=== PATIENT | female | born 1960 | race Caucasian/White ===

== ENCOUNTER → 2018-08-04 11:20 | Outpatient (CLI) | payer BC, SELFPAY ==
[2018-08-04 11:57] LABS: Blood Urea Nitrogen 18 mg/dL (7-18); Creatinine,Serum 0.94 mg/dL (0.55-1.02); Estimated Glomerular Filt Rate 61 ml/min (>60); GFR (African American) 74 ML/MIN (>60)
--- NOTE | 2018-08-04 12:01 | CT_ITS ---
CT abdomen pelvis wo/w con CLINICAL INDICATION: ITS.REASON: LEFT LOWER QUAD PAIN ORDERING PHYSICIAN: Sis Jones MD PATIENT AGE: 58 years COMPARISON: 10/03/2010 TECHNIQUE: Axial images obtained without and with contrast with sagittal and coronal reformats. All CT scans at the facility use one or more dose reduction, viz: automated exposure control, ma/kV adjustment per patient size (including targeted exams where dose is matched to indication, i.e. head), or iterative reconstruction technique. PROCEDURE: Oral Contrast: None IV Contrast: 75 mL Isovue-370. FINDINGS: There is consolidation/volume loss in the right lung base posteriorly with small effusion posteriorly. There is minimal pericardial thickening anteriorly. Small hypoattenuating area in the left hepatic lobe medial segment adjacent to the gallbladder fossa measuring 6 mm which may be due to small cyst. Unenhanced images show some increased density along the posterior aspect of the gallbladder which could be related to sludge. The spleen, adrenal glands, of an unremarkable appearance. There is atrophy of the pancreas. No pancreatic mass or inflammatory changes evident. No renal or ureteral calculi or hydronephrosis. Mild bilateral renal cortical scarring. No evidence of appendicitis. The appendix is retrocecal. No intestinal obstruction or free air. There is moderate thickening of the sigmoid colon with stranding of the pericolic fat consistent with acute diverticulitis. Inflamed diverticulum is noted anteriorly. There is no evidence of perforation or abscess. Diverticulosis involves the sigmoid colon. No pelvic mass apparent. No evidence of abdominal aneurysm. No acute bony anomalies. IMPRESSION: 1. The findings are consistent with acute noncomplicated diverticulitis of the sigmoid colon. No evidence of abscess or perforation 2. Possible sludge in the gallbladder. 3. Consolidation/volume loss of the right lung base posteriorly with small effusion
== END ==
PROVIDERS: PCP Family Medicine; Visit Provider Emergency Medicine
DX: R10.32 Left lower quadrant pain (principal)
CPT/HCPCS: 36415; 74170; 82565; 84520; Q9967

== ENCOUNTER → 2018-08-20 09:57 | Outpatient (CLI) | payer BC, SELFPAY ==
--- NOTE | 2018-08-20 10:02 | XR_ITS ---
XR foot RT min 3V HISTORY: Right-sided foot pain ITS.REASON: ACUTE RT ANKLE PAIN ORDERING PHYSICIAN: Sis Jones MD PATIENT AGE: 58 years COMPARISON: 01/17/2016 FINDINGS: There is a screw within the distal aspect of the fifth metatarsal as seen on the previous exam. The tip of the screws at the articular surface of the distal aspect of the fifth metatarsal but does not appear to be projecting through the surface and is unchanged from the previous exam. There is minimal medial angulation of the distal aspect of the fifth metatarsal. There is minimal widening of the angle between the fourth and fifth metatarsals as before. No fracture or dislocation. No significant arthritic change. IMPRESSION: Prior surgery of the fifth metatarsal as described above with mild widening of the space between the fourth and fifth metatarsals as before. No change with no acute finding
== END ==
PROVIDERS: PCP Family Medicine; Visit Provider Emergency Medicine
DX: M25.571 Pain in right ankle and joints of right foot (principal)
CPT/HCPCS: 73630

== ENCOUNTER 2018-08-31 07:48 | Outpatient (RCR) | payer BC, SELFPAY ==
--- NOTE | 2018-08-31 09:49 | HMH.PTOPEV ---
PT Outpatient Evaluation Rehab PT Outpatient Evaluation Start: 08/31/18 08:42 Freq: Status: Active Protocol: Document 08/31/18 08:42 RICHARD (Rec: 08/31/18 08:56 RICHARD [id number]) Electronically Signed By Quentin De, PT 08/31/18 08:42 Outpatient Therapy Subjective History Subjective History Patient is a 58 year old female presenting to outpatient PT with reports of R foot pain S/P R 5th metatarsal hairline fracture on 08/07/18 as a result of a fall at home. Pt reports previous R foot bunionectomy approximately 3 years ago per patient report. Pt presents to evaluation in [facility] walk[facility]. No reports of any restrictions or timeline for AD. Comorbidities include R bunionectomy, fibromyalgia, HTN and lumbar spinal stenosis . Chief Complaint Pain Stiff Swelling Weakness Symptom Type Sharp Shooting Symptoms Relieved By Rest/Positioning Ice Prescription Meds Prior Functional Limitations None Current Functional Limitations Housework Standing Recreation Activity Walking Stairs Balance Symptom Description Constant and Continuous Intermittent Level of pain today (0-10) 2 Pain scale - at its best (0-10) 0 Pain scale - at its worst (0-10) 5 Ankle/Foot Eval Gait Observation General Gait Pattern Observation Antalgic Gait Palpation Tenderness right Ankle/Foot Palpation Findings Tenderness Ankle/Foot Palpation Overall Comment Achilles ATF TTP positive ROM Ankle/Foot Dorsiflexion w/Knee Extended -10 Active Range Motion (degrees) Ankle/Foot Dorsiflexion w/Knee Extended -4 Passive Range (degrees) Ankle/Foot Plantar Flexion Active Range 60 of Motion (degrees) Ankle/Foot Eversion Active Range of 25 Motion (degrees) Ankle/Foot Inversion Active Range of 20 Motion (degrees) Ankle/Foot ROM Limitations Soft Tissue Tightness Great Toe ROM Reason Not Measured Within Function
== END 2018-08-31 07:49 | disposition home or self-care (01) ==
LOC: PT 07:48
PROVIDERS: Visit Provider Emergency Medicine
DX: M77.41 Metatarsalgia, right foot (principal)
CPT/HCPCS: 97163

== ENCOUNTER → 2019-01-31 14:27 | Outpatient (CLI) | payer BC, SELFPAY ==
[2019-01-31 15:21] LABS: Blood Urea Nitrogen 20 mg/dL (7-18); Calcium 9.2 mg/dL (8.5-10.1); Carbon Dioxide 26 mmol/L (21.0-32.0); Chloride 105 mmol/L (98-107); Creatinine,Serum 0.72 mg/dL (0.55-1.02); Estimated Glomerular Filt Rate 83 ml/min (>60); GFR (African American) 101 ML/MIN (>60); Glucose 100 mg/dL (74-106); Sodium 142 mmol/L (136-145)
[2019-01-31 15:27] LABS: Basophils % 0.3 % (0.1-2.0); Eosinophils # 0.1 K/mm3 (0.0-0.4); Hematocrit 45.9 % (37.0-47.0); Hemoglobin 15.4 g/dL (12.2-16.2); Lymphocytes # 2.3 K/mm3 (0.7-4.5); Lymphocytes % 24.1 % (10-50); Mean Corpuscular HGB Conc 33.5 g/dL (31.8-35.4); Mean Corpuscular Hemoglobin 30.5 pg (27.0-31.2); Mean Platelet Volume 7.6 fl (7.4-10.4); Monocytes # 0.3 K/mm3 (0.1-1.0); Monocytes % 3.4 % (1.7-9.3); Neutrophils # 6.7 K/mm3 (1.8-7.8); Neutrophils % 71.1 % (37.0-80.0); Platelet Count 262 K/mm3 (142-424); Red Blood Count 5.05 M/mm3 (4.20-5.40); Red Cell Distribution Width 13.7 % (11.5-17.5); White Blood Count 9.4 K/mm3 (4.8-10.8)
== END ==
PROVIDERS: Visit Provider Otolaryngology
DX: Z01.818 Encounter for other preprocedural examination (principal); D37.02 Neoplasm of uncertain behavior of tongue
CPT/HCPCS: 36415; 80048; 85025; 93005

== ENCOUNTER → 2019-03-11 11:14 | Outpatient (CLI) | payer OTHER, BC, SELFPAY ==
--- NOTE | 2019-03-11 11:18 | XR_ITS ---
XR wrist LT 2V HISTORY ITS.REASON: wrist pain ORDERING PHYSICIAN: Zander Castillo MD PATIENT AGE: 58 years Comparison: None FINDINGS: No fracture or dislocation. No lytic or blastic change. There is normal mineralization.. The joint spaces are well-preserved. No significant degenerative/arthritic changes. No erosive changes evident.. IMPRESSION: Negative wrist
--- NOTE | 2019-03-11 11:18 | XR_ITS ---
XR knee LT 2V HISTORY: ITS.REASON: knee pain ORDERING PHYSICIAN: Zander Castillo MD PATIENT AGE: 58 years COMPARISON: None FINDINGS: No fracture or dislocation. No lytic or blastic change. Normal mineralization. No significant arthritic changes evident. No other significant findings IMPRESSION: Negative Knee
== END ==
PROVIDERS: PCP Emergency Medicine; Visit Provider Emergency Medicine
DX: Z91.81 History of falling (principal)
CPT/HCPCS: 73100; 73560

== ENCOUNTER → 2019-03-22 13:07 | Outpatient (CLI) | payer BC, SELFPAY ==
--- NOTE | 2019-03-22 13:08 | CT_ITS ---
CT head/brain wo con HISTORY: Severe headache, syncope, head injury with pain and dizziness ITS.REASON: headache ORDERING PHYSICIAN: Zander Castillo MD PATIENT AGE: 58 years COMPARISON: 01/24/2019 TECHNIQUE: Axial images obtained without contrast. Brain and bone windows reviewed. All CT scans at the facility use one or more dose reduction, viz: automated exposure control, ma/kV adjustment per patient size (including targeted exams where dose is matched to indication, i.e. head), or iterative reconstruction technique. FINDINGS: No midline shift, mass effect, intracranial hemorrhage, hydrocephalus, or extra-axial fluid collection is evident. The calvarium has an unremarkable appearance. No mastoid effusion. No sinus air-fluid levels.. IMPRESSION: Negative CT head without contrast. No acute finding
--- NOTE | 2019-03-22 13:08 | CT_ITS ---
CT facial bones wo con CLINICAL INDICATION: Left facial pain, prior injury, ITS.REASON: facial pain ORDERING PHYSICIAN: Zander Castillo MD PATIENT AGE: 58 years COMPARISON: None TECHNIQUE:Axial images obtained with sagittal and coronal reformats. All CT scans at the facility use one or more dose reduction, viz: automated exposure control, ma/kV adjustment per patient size (including targeted exams where dose is matched to indication, i.e. head), or iterative reconstruction technique. FINDINGS: No fracture or sinus air-fluid level is evident. There are retention cyst along the floor of right and left maxillary sinus measuring up to 11 mm on the right and 10 mm on the left. Small nasal septal spur projecting toward the left. Scattered small nodes are present within the neck. Prominent amount of artifact is noted from patient's total work. No adenopathy. The orbits have an unremarkable appearance. There is a small subcutaneous calcification in the right supraorbital region nonspecific. The TMJs are unremarkable. IMPRESSION: 1. No acute finding. 2. Mild maxillary sinus disease.
--- NOTE | 2019-03-22 13:08 | CT_ITS ---
CT CERVICAL SPINE WITHOUT CONTRAST CT RECONSTRUCTIONS HISTORY:Neck pain following injury, posterior neck pain with pain radiating down both arms ORDERING PHYSICIAN: Zander Castillo MD PATIENT AGE: 58 years COMPARISON: None Technique: All CT scans at the facility use one or more dose reduction, viz: automated exposure control, ma/kV adjustment per patient size (including targeted exams where dose is matched to indication, i.e. head), or iterative reconstruction technique PROCEDURE: Axial spiral CT scanning performed of the cervical spine beginning at the base of the skull and continuing to the upper T-spine. 3-D multiplanar reconstruction with 3-D manipulation of volumetric data set in image rendering was completed by the radiologist and/or technologist with the supervision of the radiologist on independent workstation. FINDINGS: There is partial of the cervical lordosis which may be due to patient positioning or muscle spasm. No fracture or dislocation is evident. C2-C3: Small cystic area is present along the base of the odontoid on the left and at the inferior left aspect of the vertebral body of C2. C3-C4: Mild uncovertebral hypertrophy on the left. C4-C5: Degenerative disc disease with endplate and uncovertebral hypertrophy. C5-C6: Degenerative disc disease with endplate hypertrophic change with bilateral foraminal narrowing right greater than left. There is ossification of the posterior longitudinal ligament with mild narrowing of the canal at 10 mm. C6-C7: Mild degenerative disc disease with small left paracentral disc osteophyte complex. There are centrilobular emphysematous changes in the lung apices. Scattered small nodes are present in the neck. IMPRESSION: 1. No acute fracture. 2. Multilevel cervical spondylosis with degenerative disc disease and uncovertebral arthrosis. Please see above for detailed description at each level 3. There are 2 small lucent lesions of C2 which are quite for clinical significance. Stability may be confirmed with follow-up.
== END ==
PROVIDERS: PCP Emergency Medicine; Visit Provider Emergency Medicine
DX: R51 Headache (principal); R42 Dizziness and giddiness; Z91.81 History of falling
CPT/HCPCS: 70450; 70486; 72125

== ENCOUNTER → 2019-12-23 07:38 | Outpatient (CLI) | payer BC, SELFPAY ==
--- NOTE | 2019-12-23 07:41 | MM_ITS ---
PROCEDURE: MM DIG SCREENING MAMM BI W/CAD CLINICAL INDICATION: SCREENING There is no personal or family history of breast cancer COMPARISON: [facility] DIG MAMM-SCREEN TAMIKA from 06/08/2014 [facility] DIG MAMM-SCREEN TAMIKA from 06/23/2016 [facility] DIG MAMM- TAMIKA ADD VIEWS from 07/08/2016 TECHNIQUE: Standard CC and MLO images and 3D Tomosynthesis was obtained. R2 CAD reviewed. FINDINGS: Moderate diffuse fibroglandular densities are seen in the central portions of both breasts. There is a tiny benign-appearing nodular density outer quadrant of the left breast at approximately the 3 o'clock position with smooth borders and this is likely a microcyst. This is best demonstrated on roberto images. There is no suspicious lesion and no suspicious microcalcifications. IMPRESSION: Moderate breast density with no suspicious lesions seen BI-RAD Category: 2 Benign Finding(s) FOLLOW-UP: 1YR 1 Year Follow-up (A letter has been sent to the patient regarding results of the study.) Dictated by: Dr. Winston Hare MD 12/25/2019 08:[address] Winston Hare MD in [place] 12/25/2019 08:32
== END ==
PROVIDERS: PCP Emergency Medicine; Visit Provider Family Medicine
DX: Z12.31 Encounter for screening mammogram for malignant neoplasm of breast (principal); N60.19 Diffuse cystic mastopathy of unspecified breast
CPT/HCPCS: 77063; 77067

== ENCOUNTER 2021-04-22 14:45 | Emergency (ER) | payer BC, SELFPAY ==
[2021-04-22 14:45] VITALS: BP 145/89; PULSE 78; RESP 20; TEMP 37; O2SAT 100; BMI 20.6
[2021-04-22 15:12] VITALS: BMI 20.6
--- NOTE | 2021-04-22 15:12 | CT_ITS ---
PROCEDURE INFORMATION: Exam: CT Abdomen And Pelvis With Contrast Exam date and time: 04/22/2021 3:12 PM Age: 60 years old Clinical indication: Abdominal pain; Localized; Patient HX: Lower abdomen pain since last Thursday with trace blood in urine per patient. ; Additional info: Lower abd pain TECHNIQUE: Imaging protocol: Computed tomography of the abdomen and pelvis with contrast. Total images: 280 Radiation optimization: All CT scans at this facility use at least one of these dose optimization techniques: automated exposure control; mA and/or kV adjustment per patient size (includes targeted exams where dose is matched to clinical indication); or iterative reconstruction. Contrast material: ISOVUE; Contrast volume: 75 ml; Contrast route: IV; COMPARISON: ABDPELWW CT abdomen pelvis wo/w con 08/04/2018 12:43 PM FINDINGS: Lungs: Mild atelectasis in the lung bases. Heart: Heart size normal. Mediastinal space: The visualized distal esophagus is normal. Liver: Normal contour. No mass lesions. No intrahepatic biliary ductal dilatation. Granulomatous calcifications in the liver. 7 mm cyst adjacent to the gallbladder fossa is not significantly changed and does not require further evaluation. Gallbladder and bile ducts: Normal. No calcified stones. No ductal dilation. Pancreas: Moderate pancreatic atrophy without acute abnormality. No pancreatic ductal dilatation. Spleen: Normal. No splenomegaly. Adrenal glands: Normal. No adrenal mass. Kidneys and ureters: No acute abnormalities. No hydronephrosis or hydroureter. No urinary tract stones are identified. 10 mm probable cyst in the upper pole cortex of the left kidney measuring 0 Hounsfield units does not require further evaluation. Stomach and bowel: The stomach is largely contracted without gross abnormality. The small bowel is nondilated with no gross abnormality. Moderate colonic stool and gas suggesting constipation. Moderate diverticulosis in the sigmoid colon with no changes of acute diverticulitis. Appendix: The appendix is normal in caliber and demonstrates no evidence of appendicitis. Intraperitoneal space: No free fluid or air. Vasculature: Moderate atherosclerotic aortoiliac calcification without aneurysm. Lymph nodes: No adenopathy. Urinary bladder: The urinary bladder is largely contracted without gross abnormality. Reproductive: 12 mm calcified lesion along the posterior margin of the uterine fundus is likely a small calcified fibroid, unchanged. Bones/joints: No acute osseous abnormalities. Soft tissues: Unremarkable. IMPRESSION: 1. Moderate colonic stool and gas suggesting constipation. 2. Moderate sigmoid diverticulosis without evidence of acute diverticulitis. 3. No acute urologic findings are identified. The urinary bladder is largely contracted, without gross abnormality. 4. Additional non-emergent findings detailed above. COMMENTS: Consistent with the [employer]'s Incidental Findings Committee white paper (J Am Alyson Radiol 2018): Any incidental renal lesion less than 1 cm or classified as too small to characterize, or any incidental cystic renal lesion characterized as simple-appearing, is likely benign. No follow-up imaging is recommended for these lesions per consensus recommendations based on imaging criteria.
[2021-04-22 15:29] LABS: Microscopic, Urine URINE MICROSCOPIC (MICROSCOPIC)
[2021-04-22 15:33] LABS: Basophils # 0.1 K/mm3 (0-0.2); Basophils % 0.8 % (0.1-2.0); Eosinophils # 0.2 K/mm3 (0.0-0.4); Eosinophils % 2.3 % (0.1-12.0); Hematocrit 44.8 % (37.0-47.0); Hemoglobin 15.3 g/dL (12.2-16.2); Lymphocytes # 3.5 K/mm3 (0.7-4.5); Lymphocytes % 40.7 % (10-50); Mean Corpuscular HGB Conc 34.2 g/dL (31.8-35.4); Mean Corpuscular Hemoglobin 31.4 pg (27.0-31.2); Mean Corpuscular Volume 91.7 fl (81-99); Mean Platelet Volume 7.9 fl (7.4-10.4); Monocytes # 0.4 K/mm3 (0.1-1.0); Monocytes % 4.5 % (1.7-9.3); Neutrophils # 4.4 K/mm3 (1.8-7.8); Neutrophils % 51.8 % (37.0-80.0); Platelet Count 248 K/mm3 (142-424); Red Blood Count 4.88 M/mm3 (4.20-5.40); Red Cell Distribution Width 14.1 % (11.5-17.5); White Blood Count 8.5 K/mm3 (4.8-10.8)
[2021-04-22 15:36] LABS: Appearance,Urine CLEAR (Clear); Bilirubin,Urine Negative (Negative); Blood, Urine Negative (Negative); Color,Urine DK YELLOW (Yellow); Glucose,Urine (UA) Negative (Negative); Ketones,Urine Negative (Negative); Leukocyte Esterase,Urine Negative (Negative); Nitrate,Urine Negative (Negative); PH,Urine 5.5 (5.0-8.5); Protein,Urine 2+ (Negative); Specific Gravity, Urine >= 1.030 (1.005-1.030); Urobilinogen,Urine 0.2 EU/dl (0.2)
[2021-04-22 15:38] LABS: Urine Pregnancy, HCG Qual. Negative (Negative)
[2021-04-22 15:44] LABS: Chloride 106 mmol/L (98-107); Potassium 3.9 mmoL/L (3.5-5.1); Sodium 140 mmol/L (136-145)
[2021-04-22 15:46] LABS: Alanine Aminotransferase 12 U/L (12-78); Blood Urea Nitrogen 20 mg/dl (7-17); Creatinine Clearance Estimated 62 mL/min (50-200); Estimated Glomerular Filt Rate 64 ml/min (>60); GFR (African American) 78 ML/MIN (>60)
[2021-04-22 15:47] LABS: Albumin Level 4.8 g/dl (3.5-5.0); Albumin/Globulin Ratio 1.3 (1.1-1.8); Alkaline Phosphatase 109 U/L (38-126); Anion Gap 12.9 mEq/L (5-15); Aspartate Amino Transferase 22 U/L (14-36); Bilirubin,Total 0.2 mg/dl (0.2-1.3); Calcium 9.1 mg/dl (8.4-10.2); Carbon Dioxide 25 mmol/L (22.0-30.0); Globulin 3.6 g/dL (1.3-3.2); Glucose 95 mg/dl (74-100); Lipase 26 U/L (23-300); Total Protein,Serum 8.4 g/dl (6.3-8.2)
[2021-04-22 15:59] LABS: Bacteria,Urine Trace /lpf; Mucus,Urine Trace /lpf; RBC,Urine Occasional #/hpf (0-3); Squamous Epithelial Cell,Urine Occasional #/hpf (0-5); WBC,Urine Occasional #/hpf (0-3)
--- NOTE | 2021-04-22 16:31 | HMH.EDABDPAI ---
ED Disposition Clinical Impression: Diverticulosis Constipation Qualifiers: Constipation type: slow transit constipation Qualified Code(s): K59.01 - Slow transit constipation Disposition: Home, Self-Care Condition on Discharge: Good Instructions: DI for Acute Abdominal Pain Referrals: Jon Boyer MD [Primary Care Provider] - - Critical Care Critical Care Time: No Attestation: On 04/22/21, the high probability of a clinically significant, sudden or life threatening deterioration of the following system(s) required my full and direct attention, intervention and personal management. The time I documented below is in addition to time spent performing reported procedures but includes the following listed in this critical care notation. Medical Decision Making - Medical Records Medical records reviewed: Yes: I reviewed the patient's medical records. - Abner Inquiry Pt receiving controlled substance: No Vital Signs: 04/22/21 14:45 04/22/21 17:10 Temperature 98.6 F Temperature Source Oral Pulse Rate 52 L Pulse Rate [Left Radial] 78 Respiratory Rate 20 Blood Pressure 154/82 H Blood Pressure [Right Arm] 145/89 H Blood Pressure Mean [Right Arm] 107 Blood Pressure Source [Right Arm] Automatic Cuff Blood Pressure Position [Right Arm] Sitting 02 Sat by Pulse Oximetry 100 96 Oxygen Delivery Method Room Air - Lab Data Lab Results 04/22/21 15:13: Urine Color Dk yellow, Urine Appearance Clear, Urine pH 5.5, Ur Specific [place] >= 1.030, Urine Protein 2+, Urine Glucose (UA) Negative, Urine Ketones Negative, Urine Blood Negative, Urine Nitrate Negative, Urine Bilirubin Negative, Urine Urobilinogen 0.2, Ur Leukocyte Esterase Negative, Urine RBC Occasional, Urine WBC Occasional, Ur Squamous Epith Cells Occasional, Urine Bacteria Trace, Urine Mucus Trace 04/22/21 15:13: Urine HCG, Qual Negative 04/22/21 15:20: WBC 8.5, RBC 4.88, Hgb 15.3, Hct 44.8, MCV 91.7, MCH 31.4 H, MCHC 34.2, RDW 14.1, Plt Count 248, MPV 7.9, Neut % (Auto) 51.8, Lymph % (Auto) 40.7, [place] % (Auto) 4.5, Eos % (Auto) 2.3, Baso % (Auto) 0.8, Neut # (Auto) 4.4, Lymph # (Auto) 3.5, [place] # (Auto) 0.4, Eos # (Auto) 0.2, Baso # (Auto) 0.1 04/22/21 15:20: Sodium 140, Potassium 3.9, Chloride 106, Carbon Dioxide 25, Anion Gap 12.9, BUN 20 H, Creatinine 0.90, Estimated Creat Clear 62, Estimated GFR 64, Est GFR ( Amer) 78, Glucose 95, Calcium 9.1, Total Bilirubin 0.2, AST 22, ALT 12, Alkaline Phosphatase 109, Total Protein 8.4 H, Albumin 4.8, Globulin 3.6 H, Albumin/Globulin Ratio 1.3, Lipase 26 Result diagrams: 04/22/21 15:20 04/22/21 15:20 Orders (Tests/Meds): ED MEDICATIONS Discontinued Medications Generic Name Dose Route Start Last Admin Trade Name Freq PRN Reason Stop Dose Admin Iopamidol 75 ml 04/22/21 18:05 04/22/21 18:06 Iopamidol-370 (76%);100ml Bottle IV 04/22/21 18:06 75 ml ONCE ONE Administration Morphine Sulfate 4 mg 04/22/21 15:23 04/22/21 15:31 Morphine 4mg/Ml Syringe IV 04/22/21 15:24 4 mg ONCE ONE Administration Ondansetron HCl 4 mg 04/22/21 15:23 04/22/21 15:31 Ondansetron 4mg/2ml Vial IV 04/22/21 15:24 4 mg ONCE ONE Administration Sodium Chloride 10 ml 04/22/21 18:05 04/22/21 18:06 Sodium Chloride 0.9% 10ml Syr (Rad Only) IV 04/22/21 18:06 10 ml ONCE ONE Administration - CT Data CT Scan: Abdomen, Pelvis Time Received: 19:[address] Reviewed: Yes: I have reviewed the patient's CT results, I have viewed the radiologist's interpretation Findings Narrative: IMPRESSION: 1. Moderate colonic stool and gas suggesting constipation. 2. Moderate sigmoid diverticulosis without evidence of acute diverticulitis. 3. No acute urologic findings are identified. The urinary bladder is largely contracted, without gross abnormality. 4. Additional non-emergent findings detailed above. - Reevaluation(s) Time: 19:04 Reevaluation #1: On reevaluation, the patien
[2021-04-22 17:10] VITALS: BP 154/82; PULSE 52; O2SAT 96
[2021-04-22 19:09] VITALS: BP 161/92; PULSE 67; RESP 16; TEMP 36.7; O2SAT 99
== END 2021-04-22 19:11 | disposition home or self-care (01) ==
PROVIDERS: Emergency Provider Emergency Medicine; PCP Family Medicine
DX: K59.01 Slow transit constipation (principal); K57.90 Diverticulosis of intestine, part unspecified, without perforation or abscess without bleeding; N39.0 Urinary tract infection, site not specified; M79.7 Fibromyalgia; E03.9 Hypothyroidism, unspecified; I10 Essential (primary) hypertension; Z79.899 Other long term (current) drug therapy
CPT/HCPCS: 74177; 80053; 81001; 81025; 83690; 85025; 96374; 96375; 99283; J2405; Q9967

== ENCOUNTER → 2021-12-27 10:26 | Outpatient (CLI) | payer OTHER, SELFPAY ==
--- NOTE | 2021-12-27 10:31 | MM_ITS ---
PROCEDURE INFORMATION: Exam: MG Bilateral Screening 3D Mammography Exam date and time: 12/27/2021 10:31 AM Age: 61 years old Clinical indication: Encounter for screening mammogram for malignant neoplasm of breast TECHNIQUE: Imaging protocol: Bilateral Screening tomosynthesis and 2D mammography including computer-aided detection (CAD) when performed. COMPARISON: 1. MG MM DIG SCREENING MAMM BI W/CAD 12/23/2019 8:33 AM 2. MG [facility] DIG MAMM- TAMIKA ADD VIEWS 07/08/2016 2:19 PM FINDINGS: MAMMOGRAPHY: Breast composition: The breast tissue is heterogeneously dense, which may obscure small masses. Mass: None. Architectural distortion: None. Calcifications: No suspicious calcifications. Asymmetric density: None. Skin thickening: None. Axillary adenopathy: None. IMPRESSION: No mammographic evidence of malignancy. Annual screening is recommended unless otherwise clinically indicated. ASSESSMENT: BI-RADS Category 1: Negative
== END ==
PROVIDERS: PCP Family Medicine; Visit Provider Family Medicine
DX: Z12.31 Encounter for screening mammogram for malignant neoplasm of breast (principal); N60.19 Diffuse cystic mastopathy of unspecified breast
CPT/HCPCS: 77063; 77067

== ENCOUNTER → 2022-04-10 10:51 | Outpatient (CLI) | payer OTHER, SELFPAY ==
[2022-04-10 12:08] LABS: Basophils # 0.3 K/mm3 (0-0.2); Basophils % 2.9 % (0.1-2.0); Eosinophils # 0.2 K/mm3 (0.0-0.4); Eosinophils % 2.2 % (0.1-12.0); Hematocrit 47.7 % (37.0-47.0); Hemoglobin 16.4 g/dL (12.2-16.2); Lymphocytes # 2.2 K/mm3 (0.7-4.5); Lymphocytes % 24.5 % (10-50); Mean Corpuscular HGB Conc 34.3 g/dL (31.8-35.4); Mean Corpuscular Hemoglobin 32.5 pg (27.0-31.2); Mean Corpuscular Volume 94.7 fl (81-99); Mean Platelet Volume 8.6 fl (7.4-10.4); Monocytes # 0.5 K/mm3 (0.1-1.0); Monocytes % 5.7 % (1.7-9.3); Neutrophils # 5.9 K/mm3 (1.8-7.8); Neutrophils % 64.8 % (37.0-80.0); Platelet Count 308 K/mm3 (142-424); Red Blood Count 5.04 M/mm3 (4.20-5.40); Red Cell Distribution Width 14.2 % (11.5-17.5)
[2022-04-10 12:32] LABS: Alanine Aminotransferase 14 U/L (12-78); Albumin Level 4.4 g/dl (3.5-5.0); Alkaline Phosphatase 101 U/L (38-126); Anion Gap 12.9 mEq/L (5-15); Aspartate Amino Transferase 25 U/L (14-36); Bilirubin,Indirect 0.2 mg/dL (0.0-0.9); Bilirubin,Total 0.2 mg/dl (0.2-1.3); Bilirubin,Unconjugated 0.5 mg/dL (0.0-1.1); Blood Urea Nitrogen 23 mg/dl (7-17); Carbon Dioxide 29 mmol/L (22.0-30.0); Chloride 103 mmol/L (98-107); Estimated Glomerular Filt Rate 64 ml/min (>60); GFR (African American) 77 ML/MIN (>60); Glucose 89 mg/dl (74-100); Potassium 3.9 mmoL/L (3.5-5.1); Sodium 141 mmol/L (136-145); Total Protein,Serum 7.5 g/dl (6.3-8.2)
[2022-04-10 12:48] LABS: Free T4 (Free Thyroxine) 0.97 ng/dl (0.78-2.19)
[2022-04-10 13:02] LABS: Thyroid Stimulating Hormone 1.35 uIU/mL (0.465-4.68)
== END ==
PROVIDERS: PCP Family Medicine; Visit Provider Nurse Practitioner Family
DX: L29.8 Other pruritus (principal); L82.1 Other seborrheic keratosis; D23.72 Other benign neoplasm of skin of left lower limb, including hip; B35.3 Tinea pedis; F17.200 Nicotine dependence, unspecified, uncomplicated
CPT/HCPCS: 36415; 80048; 80076; 84439; 84443; 85025

== ENCOUNTER → 2023-04-14 13:27 | Outpatient (CLI) | payer OTHER, SELFPAY ==
--- NOTE | 2023-04-14 13:45 | ECG_ITS ---
APPROVED REPORT Exam: Resting ECG HR:62 bpm ECG Measurements Heart Rate 62 AXES DE 166 P 52 QRSd 87 QRS 41 QT 438 T 63 QTc 443 Conclusion SINUS RHYTHM POSSIBLE LEFT ATRIAL Abnormality BORDERLINE ECG UNCONFIRMED REPORT Electronically signed by : Ludwin Vergara MD 04/16/2023 09:29:03
== END ==
LOC: RT 13:30
PROVIDERS: PCP Family Medicine; Visit Provider Nurse Practitioner Family
DX: R55 Syncope and collapse (principal)
CPT/HCPCS: 93005

== ENCOUNTER → 2023-04-22 09:43 | Outpatient (CLI) | payer OTHER, SELFPAY ==
--- NOTE | 2023-04-22 | CA_ITS ---
FINAL REPORT TECHNIQUE: Color Doppler, duplex Doppler and bright scale sonography of the bilateral neck arterial vasculature was performed. Velocities were measured in the carotid arteries. Stenosis evaluation based on the validated velocity criteria. CLINICAL HISTORY: dizziness, near-syncope, smoker FINDINGS: The peak systolic velocity of the right common carotid artery is 68.2 cm/s. The peak systolic velocity of the right internal carotid artery is 82.3 cm/s and end diastolic velocity 28.3 cm/s. A small amount of plaque is present. The right external carotid artery is patent. The right vertebral artery is patent with antegrade flow. The peak systolic velocity of the left common carotid artery is 80.7 cm/s. The peak systolic velocity of the left internal carotid artery is 106.2 cm/s and end diastolic velocity 33.7 cm/s. A small amount of plaque is present. The left external carotid artery is patent.The left vertebral artery is patent with antegrade flow. IMPRESSION: Less than 50% bilateral carotid stenoses. Bilateral patent vertebral arteries with antegrade flow. If indicated, CTA or MRA could further evaluate. Reviewed, Interpreted and Dictated by Leonardo Turpin III, MD Transcribed by Lucy Alcala Authenticated and [facility]
== END ==
PROVIDERS: PCP Family Medicine; Visit Provider Nurse Practitioner Family
DX: R55 Syncope and collapse (principal)
CPT/HCPCS: 93880

== ENCOUNTER → 2023-05-06 07:40 | Outpatient (CLI) | payer OTHER, SELFPAY ==
--- NOTE | 2023-05-06 07:45 | MM_ITS ---
PROCEDURE INFORMATION: Exam: MG Bilateral Screening 3D Mammography Exam date and time: 05/06/2023 7:46 AM Age: 62 years old Clinical indication: Screening. Paternal cousin had breast cancer. TECHNIQUE: Imaging protocol: Bilateral Screening tomosynthesis and 2D mammography including computer-aided detection (CAD) when performed. COMPARISON: 1. MG MM DIG SCREENING MAMM BI W/CAD 12/27/2021 11:00 AM 2. MG MM DIG SCREENING MAMM BI W/CAD 12/23/2019 8:33 AM 3. MG [facility] DIG MAMM- TAMIKA ADD VIEWS 07/08/2016 2:19 PM 4. MG [facility] DIG MAMM-SCREEN TAMIKA 06/23/2016 4:19 PM FINDINGS: MAMMOGRAPHY: Breast composition: The breasts are heterogeneously dense, which may obscure small masses. Mass: No suspicious mass. Architectural distortion: None. Calcifications: No suspicious calcifications. Asymmetric density: None. Skin thickening: None. Axillary adenopathy: None. IMPRESSION: No mammographic evidence of malignancy. Annual screening is recommended unless otherwise clinically indicated. ASSESSMENT: BI-RADS Category 1: Negative
== END ==
PROVIDERS: PCP Family Medicine; Visit Provider Nurse Practitioner Family
DX: Z12.31 Encounter for screening mammogram for malignant neoplasm of breast (principal)
CPT/HCPCS: 77063; 77067

== ENCOUNTER 2024-02-18 10:42 | Outpatient (CLI) | payer MEDICAID, SELFPAY ==
[2024-02-18 11:06] LABS: Microscopic, Urine URINE MICROSCOPIC (MICROSCOPIC)
[2024-02-18 11:53] LABS: Hematocrit 45.4 % (37.0-47.0); Hemoglobin 15.1 g/dL (12.2-16.2); Mean Corpuscular HGB Conc 33.2 g/dL (31.8-35.4); Mean Corpuscular Volume 96.2 fl (81-99); Platelet Count 262 K/mm3 (142-424); Red Blood Count 4.72 M/mm3 (4.20-5.40); Red Cell Distribution Width 13.9 % (11.5-17.5); White Blood Count 8.5 K/mm3 (4.8-10.8)
[2024-02-18 12:08] LABS: Appearance,Urine CLEAR (Clear); Bilirubin,Urine Negative (Negative); Blood, Urine TRACE-I (Negative); Color,Urine YELLOW (Yellow); Glucose,Urine (UA) Negative (Negative); Ketones,Urine Negative (Negative); Leukocyte Esterase,Urine Negative (Negative); Nitrate,Urine Negative (Negative); Protein,Urine Negative (Negative); Urobilinogen,Urine 0.2 EU/dl (0.2)
[2024-02-18 12:40] LABS: Albumin Level 4.2 g/dl (3.5-5.0); Anion Gap 8.5 mEq/L (5-15); Blood Urea Nitrogen 22 mg/dl (7-17); Calcium 9.7 mg/dl (8.4-10.2); Carbon Dioxide 29 mmol/L (22.0-30.0); Chloride 105 mmol/L (98-107); Estimated Glomerular Filt Rate 50 ml/min (>60); GFR (African American) 61 ML/MIN (>60); Glucose 97 mg/dl (74-100); Phosphorous 3.9 mg/dl (2.5-4.5); Potassium 3.5 mmoL/L (3.5-5.1); Sodium 139 mmol/L (136-145)
[2024-02-18 12:43] LABS: Bacteria,Urine Trace /lpf; RBC,Urine Occasional #/hpf (0-3)
[2024-02-18 12:52] LABS: Intact Parathyroid Hormone 93.1 pg/mL (7.5-53.5)
[2024-02-18 13:00] LABS: 25-OH Vitamin D, Total 54.6 ng/mL (30-100)
[2024-02-18 13:03] LABS: Creatinine,Urine Random 216 mg/dL (Not Estab.)
== END 2024-02-18 23:59 | disposition home or self-care (01) ==
LOC: LAB 10:43
PROVIDERS: PCP Family Medicine; Visit Provider Nurse Practitioner
DX: N18.32 Chronic kidney disease, stage 3b (principal); E55.9 Vitamin D deficiency, unspecified
CPT/HCPCS: 80069; 81001; 82306; 82570; 83970; 84156; 85014; 85018; 85048; 85049

== ENCOUNTER 2024-02-23 09:13 | Outpatient (POV) | payer MEDICAID, SELFPAY | END 2024-02-23 23:59 | disposition home or self-care (01) | LOC: SC 09:13 | PROVIDERS: Visit Provider Nurse Practitioner | DX: Z00.00 Encounter for general adult medical examination without abnormal findings (principal) ==

== ENCOUNTER 2024-04-08 13:17 | Outpatient (CLI) | payer MEDICAID, SELFPAY ==
--- NOTE | 2024-04-08 13:20 | CT_ITS ---
FINAL REPORT CLINICAL HISTORY: H/O TOBACCO USE 1 pack per day x 44 yrs FINDINGS: CT CHEST LOW DOSE SCREENING HISTORY: Screening exam for lung cancer. Current smoker, 30 pack year smoking history DOSE: CTDIvol: 2.90 mGy, DLP: 107.59 mGy*cm COMPARISON: None . TECHNIQUE: Axial CT without IV contrast administration using low dose protocol FINDINGS: No acute lung disease is present . There is a 6 mm right lower lobe nodule seen on image 59. A few other scattered small nodules measuring 3 mm or less. No pericardial effusion. Trace right pleural effusion. No adenopathy or mass lesion is present . IMPRESSION: 1. Small pulmonary nodules; the largest measures 6 mm in the right lower lobe. Favor granulomas. LUNG RADS CATEGORY 3 RECOMMENDATION: 6 month LDCT follow up Reviewed, Interpreted and Dictated by Jon Story MD Transcribed by Analy Bender Authenticated and [facility]
== END 2024-04-08 23:59 | disposition home or self-care (01) ==
LOC: RAD 13:17
PROVIDERS: PCP Family Medicine; Visit Provider Family Medicine
DX: Z12.2 Encounter for screening for malignant neoplasm of respiratory organs (principal); F17.210 Nicotine dependence, cigarettes, uncomplicated
CPT/HCPCS: 71271

== ENCOUNTER 2024-08-15 11:07 | Outpatient (CLI) | payer MEDICARE, SELFPAY ==
--- NOTE | 2024-08-15 | CA_ITS ---
APPROVED REPORT Exam: Pharmacologic Technologist: Naomie Manrique, Ht: 5 ft 6 in Wt: 116 lbs BSA: 1.59 m2 HR: 67 bpm BP: 171/78 mmHg Rhythm: NSR Medical History Medical History: HTN, Smoking Medications: Amlodipine,,,,, Carvedilol,,,,, Lasix,,,,, Allergies: No known drug allergies Cardiac Risk Factors: HTN, FHX of CAD, Smoking Stress Test Details Test: LEXISCAN HR Resting HR: 59 bpm Max Heart Rate (APMHR): 157 bpm Max HR Achieved: 101 bpm Target HR (85% APMHR): 133 bpm % of APMHR: 64 Recovery HR: 90 bpm BP Resting BP: 171/78 mmHg Max BP: 171/78 mmHg Recovery BP: 132.0/97.0 mmHg ECG Resting ECG: NSR, PACs, PVCs Stress ECG: No significant ST changes Arrhythmia: PACs, PVCs Clinical Exercise duration: 04:22 min Highest Stage Achieved: Exercise capacity: 1.0 METs Stress ECG Conclusion Pt had soa and chest pressure Ectopy: PACs, PVCs ST changes; None Conclusion: Unremarkable ECG portion of Lexiscan stress test. Myoview images reported separately. Test Summary REST . . . . . . . Sitting REST 08:01 . . 59 . 171/ 78 . . Stage 1 01:00 . . 87 . . . . Stage 2 01:00 . . 92 . . . . Stage 3 01:00 . . 88 . 125/ 62 . . Stage 4 01:00 . . 84 . 140/ 70 . . Stage 4 01:22 . . 86 . 140/ 70 . Stop exercise at 04:22 RECOVERY 01:00 . . 95 . 146/ 58 . . RECOVERY 02:00 . . 0 . 132/ 97 . . Electronically signed by : Nica Porras MD 08/17/2024 11:12:15
--- NOTE | 2024-08-15 11:15 | NM_ITS ---
APPROVED REPORT Exam: Nuclear Stress Test Indication: htn, hyperlipidemia, tob use, fm hx., sob, palpitations, syncope, fatigue Patient Location: Outpatient Stress Tech: Naomie Manrique [place] Tech:Charmaine Nice, ARRT RT (R)(N)(M) Ht: 5 ft 6 in Wt: 116 lbs Bra Size: b HR: 59 bpm BP: 171/78 mmHg BSA: 1.59 m2 TID: 0.92 BMI: 18.7 History: htn, hyperlipidemia, tob use, fm hx., sob, palpitations, syncope, fatigue Procedure: Patient received 0.4 mg of intravenous Lexiscan, resting heart rate 59 bpm, resting blood pressure 171/78 mmHg, with Lexiscan maximum heart rate achieved was 101 bpm which is % of the maximum predicted heart rate and blood pressure was 171/78 mmHg. With Lexiscan, patient denied any complaint of chest pain. Cardiac Stress and Resting SPECT Images: Cardiac Stress and Resting SPECT images were obtained using technetium 99m Myoview 31.1 mCi stress and 10.22 mCi at rest. Resting and stress imaging in supine and prone positions demonstrate no evidence of fixed or reversible perfusion defects. Gated imaging demonstrates normal global and regional LV systolic function. LVEF is calculated at 57%. Conclusion: No evidence of fixed or reversible perfusion defects. Gated imaging demonstrates normal global and regional LV systolic function. LVEF is calculated at 57%. Electronically signed by : Nica Porras MD 08/17/2024 11:13:40
[2024-08-15] MEDS: SODIUM CHLORIDE 0.9% 10ML SYR (RAD ONLY) 10 ML IV ×2 (11:30→13:00)
[2024-08-15] MEDS: REGADENOSON 0.4MG/5ML SYRINGE 0.4 MG IV (13:00)
[2024-08-15] MEDS: ISOTOPE MYOVIEW (PER STUDY) 1 DOSE IV (13:59)
== END 2024-08-15 23:59 | disposition home or self-care (01) ==
LOC: RAD 11:07
PROVIDERS: PCP Family Medicine; Visit Provider Family Medicine
DX: R06.02 Shortness of breath (principal); I10 Essential (primary) hypertension; R53.82 Chronic fatigue, unspecified; Z82.49 Family history of ischemic heart disease and other diseases of the circulatory system
CPT/HCPCS: 78452; 93017; 93018; A9502; J2785

== ENCOUNTER 2024-08-31 10:47 | Outpatient (CLI) | payer MEDICARE, SELFPAY ==
[2024-08-31 10:53] LABS: Microscopic, Urine URINE MICROSCOPIC (MICROSCOPIC)
[2024-08-31 11:06] LABS: Basophils # 0.2 K/mm3 (0-0.2); Basophils % 1.6 % (0.1-2.0); Eosinophils # 0.1 K/mm3 (0.0-0.4); Eosinophils % 1.2 % (0.1-12.0); Hematocrit 46.9 % (37.0-47.0); Hemoglobin 16.6 g/dL (12.2-16.2); Lymphocytes # 2.5 K/mm3 (0.7-4.5); Lymphocytes % 23.7 % (10-50); Mean Corpuscular HGB Conc 35.3 g/dL (31.8-35.4); Mean Corpuscular Hemoglobin 32.5 pg (27.0-31.2); Mean Corpuscular Volume 91.9 fl (81-99); Mean Platelet Volume 7.8 fl (7.4-10.4); Monocytes # 0.5 K/mm3 (0.1-1.0); Monocytes % 4.3 % (1.7-9.3); Neutrophils # 7.3 K/mm3 (1.8-7.8); Neutrophils % 69.2 % (37.0-80.0); Platelet Count 276 K/mm3 (142-424); White Blood Count 10.5 K/mm3 (4.8-10.8)
[2024-08-31 11:35] LABS: Alanine Aminotransferase 23 U/L (12-78); Albumin Level 4.6 g/dl (3.5-5.0); Albumin/Globulin Ratio 1.5 (1.1-1.8); Alkaline Phosphatase 79 U/L (38-126); Anion Gap 10.9 mEq/L (5-15); Aspartate Amino Transferase 27 U/L (14-36); Bilirubin,Total 0.7 mg/dl (0.2-1.3); Blood Urea Nitrogen 24 mg/dl (7-17); Carbon Dioxide 29 mmol/L (22.0-30.0); Chloride 105 mmol/L (98-107); Estimated Glomerular Filt Rate 50 ml/min (>60); GFR (African American) 61 ML/MIN (>60); Glucose 104 mg/dl (74-100); Potassium 3.9 mmoL/L (3.5-5.1); Sodium 141 mmol/L (136-145); Total Protein,Serum 7.6 g/dl (6.3-8.2)
[2024-08-31 11:46] LABS: Appearance,Urine CLEAR (Clear); Bilirubin,Urine Negative (Negative); Blood, Urine TRACE-I (Negative); Color,Urine YELLOW (Yellow); Glucose,Urine (UA) Negative (Negative); Ketones,Urine Negative (Negative); Leukocyte Esterase,Urine Negative (Negative); Nitrate,Urine Negative (Negative); Protein,Urine TRACE (Negative); Urobilinogen,Urine 0.2 EU/dl (0.2)
[2024-08-31 12:06] LABS: Bacteria,Urine Trace /lpf; WBC,Urine Occasional #/hpf (0-3)
--- NOTE | 2024-09-01 11:16 | CT_ITS ---
PROCEDURE INFORMATION: Exam: CT Abdomen And Pelvis With Contrast Exam date and time: 09/01/2024 11:21 AM Age: 64 years old Clinical indication: Other: Elevated ferritin TECHNIQUE: Imaging protocol: Computed tomography of the abdomen and pelvis with contrast. Radiation optimization: All CT scans at this facility use at least one of these dose optimization techniques: automated exposure control; mA and/or kV adjustment per patient size (includes targeted exams where dose is matched to clinical indication); or iterative reconstruction. Contrast material: ISOVUE; Contrast volume: 75 ml; Contrast route: IV; COMPARISON: CT ABDOMEN PELVIS W CON 04/22/2021 5:56 PM FINDINGS: Lungs: 4.7 mm pulmonary nodule in the right lower lobe (series 2, image 3).. Heart: Small pericardial effusion Liver: 11 mm nodule anterior aspect of the liver 30 Hounsfield units (series 2, image 30).. Gallbladder and biliary ducts: Normal. No calcified stones. No ductal dilation. Pancreas: Pancreatic atrophy Spleen: Normal. No splenomegaly. Adrenal glands: Normal. No mass. Kidneys and ureters: Subcentimeter low attenuation area in the right kidney is too small for characterization. Stomach and bowel: Diverticulosis of the rectosigmoid. No diverticulitis Appendix: No evidence of appendicitis. Intraperitoneal space: Unremarkable. No free air. No significant fluid collection. Vasculature: Unremarkable. No abdominal aortic aneurysm. Lymph nodes: Unremarkable. No enlarged lymph nodes. Urinary bladder: Unremarkable as visualized. Reproductive: Unremarkable as visualized. Bones/joints: Unremarkable. No acute fracture. Soft tissues: Unremarkable. IMPRESSION: 1. 4.7 mm pulmonary nodule in the right lower lobe (series 2, image 3).For patients at low risk (minimal or absent history of smoking and of other known risk factors), no routine follow-up is indicated. For patients at high risk (history of smoking or of other known risk factors), consider optional CT Chest at 12 months. (Reference: Joe) References: Joe Chris, et al. Guidelines for Management of Incidental Pulmonary Nodules Detected on CT Images: From the Fleischner Society 2017. Radiology. 2017;284(1):228-243. . 2. 11 mm nodule anterior aspect of the liver 30 Hounsfield units (series 2, image 30).. Recommend liver MRI if clinically indicated
[2024-09-01] MEDS: IOPAMIDOL-370 (76%);100ML BOTTLE 75 ML IV (11:32)
[2024-09-01] MEDS: SODIUM CHLORIDE 0.9% 10ML SYR (RAD ONLY) 10 ML IV (11:32)
[2024-09-01] MEDS: BARIUM SULFATE(READI-CAT2);450ML BOTTLE 450 ML PO (11:32)
== END 2024-08-31 23:59 | disposition home or self-care (01) ==
LOC: LAB 10:48
PROVIDERS: PCP Physician Assistant; Visit Provider Physician Assistant
DX: R10.32 Left lower quadrant pain (principal)
CPT/HCPCS: 36415; 74177; 80053; 81001; 85025; 87086; Q9967

== ENCOUNTER 2024-09-01 10:40 | Outpatient (CLI) | payer MEDICARE, SELFPAY ==
--- NOTE | 2024-09-01 10:43 | US_ITS ---
PROCEDURE INFORMATION: Exam: US Abdomen, Limited; Right Upper Quadrant Exam date and time: 09/01/2024 10:56 AM Age: 64 years old Clinical indication: Abnormal findings; Abnormal lab test; Other: Abn ferritin; Additional info: Elevated ferritin TECHNIQUE: Imaging protocol: Real time ultrasound of the abdomen with image documentation. Limited exam focused on the right upper quadrant. COMPARISON: CT ABDOMEN PELVIS W CON 04/22/2021 5:56 PM FINDINGS: Liver: Small cyst within the medial segment of the left lobe of the liver maximal diameter of 1.3 cm. Gallbladder: gallbladder normal. No pericholecystic fluid or gallbladder wall thickening. Biliary ducts: Common bile duct 2-3 mm. Common bile duct normal. Pancreas: Visualized portions of the pancreas normal. Right kidney: Right kidney 8.8 cm. Small calcifications. Small cysts largest upper pole of approximately 0.9 cm in maximal dimension. Portal venous: Flow within the portal vein is towards the liver- hepatopedal Hepatic veins: Hepatic veins are patent. IMPRESSION: 1. Small cyst adjacent to the gallbladder fossa within the medial segment of the left lobe. 2. Right kidney: Possible small calcifications . Small cysts largest upper pole of approximately 0.9 cm in maximal dimension.
== END 2024-09-01 23:59 | disposition home or self-care (01) ==
LOC: RAD 10:41
PROVIDERS: PCP Physician Assistant; Visit Provider Physician Assistant
DX: R79.89 Other specified abnormal findings of blood chemistry (principal)
CPT/HCPCS: 74177; 76705; Q9967

== ENCOUNTER 2024-09-06 09:45 | Outpatient (CLI) | payer MEDICARE, SELFPAY ==
--- OUTSIDE RECORDS SUMMARY | 2024-09-06 09:47 | XMS_ITS ---
Author Organization [facility] Address [address] [facility] [address] [place] [id number] Care Team Providers Care Shrimp Trawler Name Role Phone Rosa Maria Boyer Primary Care Provider Susana Singh Unavailable [phone] REASON FOR VISIT Test results and requests Susana Call her Encounters Encounter Location Date Provider Diagnosis [facility] [address] [place] [id number] 08/30/2024 Susana Singh Positive colorectal cancer screening using Cologuard test R19.5 ASSESSMENTS Encounter Date Diagnosis Assessment Notes Treatment Notes Treatment Clinical Notes 08/30/2024 Positive colorectal cancer screening using Cologuard test (ICD-10 - R19.5) PLAN OF TREATMENT Pending Test Test Name Order Date colonoscopy 08/30/2024 Next Appt Details Provider Name:Rosa Maria Holder er, 09/08/2024 02:00:00 PM, [address], [address], [place], [phone],
--- OUTSIDE RECORDS SUMMARY | 2024-09-06 09:47 | XMS_ITS ---
Author Organization [facility] Address [address] [id number] Care Team Providers Care Fabricating Machine Operator Name Role Phone Rosa Maria Boyer Primary Care Provider [phone] SamanthaSusana Unavailable [phone] ALLERGIES No Known Allergies RESULTS Component Value Reference Range Notes H-CBC Reviewed date:08/31/2024 03:21:45 PM Interpretation:hgb 16.6, mch 32.5 Performing Lab: Notes/Report: WBC 10.5 4.8-10.8 K/mm3 RBC 5.10 4.20-5.40 M/mm3 HGB 16.6 12.2-16.2 g/dL HCT 46.9 37.0-47.0 % MCV 91.9 81-99 fl MCH 32.5 27.0-31.2 pg MCHC 35.3 31.8-35.4 g/dL RDW 14.0 11.5-17.5 % PLT 276 142-424 K/mm3 MPV 7.8 7.4-10.4 fl NE% 69.2 37.0-80.0 % LY% 23.7 10-50 % MO% 4.3 1.7-9.3 % EO% 1.2 0.1-12.0 % BA% 1.6 0.1-2.0 % NE# 7.3 1.8-7.8 K/mm3 LY# 2.5 0.7-4.5 K/mm3 MO# 0.5 0.1-1.0 K/mm3 EO# 0.1 0.0-0.4 K/mm3 BA# 0.2 0-0.2 K/mm3 H-UA Reviewed date:08/31/2024 03:22:18 PM Interpretation:trace prot, trace blood, trace bacteria Performing Lab: Notes/Report: UCOL YELLOW Yellow UAPP CLEAR Clear UPH 6.0 5.0-8.5 USG 1.010 1.005-1.030 UPRO TRACE Negative UGLU Negative Negative UKET Negative Negative UBLD TRACE-I Negative UNIT Negative Negative UBIL Negative Negative UURO 0.2 0.2 EU/dl ULEU Negative Negative UMICU URINE MICROSCOPIC MICROSCOPIC URBC None 0-3 #/hpf UWBC Occasional 0-3 #/hpf USQEPI 3-5 0-5 #/hpf UBACT Trace NONE /lpf H-CMP Reviewed date:08/31/2024 03:22:07 PM Interpretation:bun 24, Cr 1.1, gfr 50, gluc 104 Performing Lab: Notes/Report: NA 141 136-145 mmol/L K 3.9 3.5-5.1 mmoL/L CL 105 98-107 mmol/L CO2 29 22.0-30.0 mmol/L GAP 10.9 5-15 mEq/L BUN 24 7-17 mg/dl CREATT 1.10 0.52-1.04 mg/dl GFRAA 61 >60 ML/MIN EGFR 50 >60 ml/min GLU 104 74-100 mg/dl CA 10.0 8.4-10.2 mg/dl BILIT 0.7 0.2-1.3 mg/dl AST 27 14-36 U/L ALT 23 12-78 U/L TP 7.6 6.3-8.2 g/dl ALB 4.6 3.5-5.0 g/dl GLOB 3.0 1.3-3.2 g/dL AGRATIO 1.5 1.1-1.8 ALP 79 38-126 U/L H-Urine Culture and Sensitiv ity Reviewed date:09/04/2024 10:16:23 PM Interpretation:Multiple organisms, suggests contamination. Performing Lab: Notes/Report: CUU Multiple organisms, suggests contamination. CT Scan : Abd and Pelvis w/ oral & IV contrast Reviewed date:09/05/2024 12:09:40 PM Interpretation:Abnormal, recommend f/u testing Performing Lab: Notes/Report: Abnormal, recommend f/u testing REASON FOR VISIT abdominal pain MEDICATIONS Medication SIG (Take, Route, Frequency, Duration) Notes Start Date End Date Status Carvedilol 12.5 MG Take 1 tablet by mouth twice daily for 90 Active hydroCHLOROthiazide 12.5 MG 1 tablet in the morning Orally Once a day for 90 days Active traMADol HCl 50 MG 1 tab(s) orally 3 times a day as needed 08/08/2024 Active Magnesium 400 MG as directed Orally 05/30/2024 Active amLODIPine Besylate 10 MG Take 1 tablet by mouth once daily for 90 days for 90 days Active diazePAM 5 MG 1 tab(s) orally qhs 10/15/2023 Active Aspirin 81 MG 1 P.O. Q HS 01/15/2009 Act kari Potassium Chloride ER 10 MEQ 1 tablet wi th food Orally Once a day for 30 day(s) 03/28/2024 Active Doxazosin Mesylate 2 MG 2 tablets orally at bedtime for 90 days Active B-12 1000 MCG 1 tab(s) orally once a day for 30 day(s) Active Iron 325 (65 Fe) MG 1 tablet Orally Once a day Not-Taking Vitamin D3 25 MCG (1000 UT) 1 tab(s) ora lly once a day 09/24/2009 Active VITAL SIGNS Weight 114.8 lbs 08/31/2024 Blood pressure systolic 114 mm Hg 08/31/20 24 Blood pressure diastolic 80 mm Hg 024 Heart Rate 78 /min 08/31/2024 Height 65.25 in 08/31/2024 BMI 18.96 kg/m2 08/31/2024 Encounters Encounter Location Date Provider Diagnosis [facility] [address] [facility] [address] [place] [id number] 08/31/2024 Susana Samantha Left lower quadrant pain R10.32 and History of diverticulitis Z87.19 ASSESSMENTS Encounter Date Diagnosis Assessment Notes Treatment Notes Treatment Clinical Notes 08/31/2024 Left lower quadrant pain (ICD-10 - R10.32) 08/31/2024 History of diverticulitis (ICD-10 - Z87.19) PLAN OF TREATMENT Next Appt Details Follow Up: via phone to repo rt test results, Reason: Provider Name:Rosa Maria Holder er, 09/08/2024 02:00:00 PM, [address], [address], [place], [phone], Progress Notes * Examination Category Sub-Category Detail Notes Gastroenterology Oral cavity: normal Sclera: anicteric Heart sounds: regular, normal S1 S 2, no murmurs Lungs: clear, no rales or w heezes Abdomen: BS present, soft, no guarding or rigidity, ttp in the LLQ Hernias: none General Appearance: pleasant, NAD History and Physical Notes * HPI (History of Present Illness) Category Sub-Category Detail Notes Gastroenterology Fever low grade (99-1 00) Vomiting Abdominal Pain Diarrhea
--- OUTSIDE RECORDS SUMMARY | 2024-09-06 09:47 | XMS_ITS ---
Author Organization [facility] Address [address] [facility] [address] [place] [id number] Care Team Providers Care Accounting Officer Name Role Phone Rosa Maria Boyer Primary Care Provider [phone] Susana Singh Unavailable [phone] REASON FOR VISIT Test results PROBLEMS Problem Type ICD Code Onset Dates Problem Status W/U Status Risk SNOMED Code Notes Problem Abnormal CT scan (R93.89) Active confirmed [id number] Encounters Encounter Location Date Provider Diagnosis [facility] [address] [facility] [address] [place] [id number] 09/04/[address] scan R93 .89 ASSESSMENTS Encounter Date Diagnosis Assessment Notes Treatment Notes Treatment Clinical Notes 09/04/[address] scan (ICD-10 - R93.89) PLAN OF TREATMENT Pending Test Test Name Order Date Echocardiogram 09/04/2024 Next Appt Details Provider Name:Rosa Maria Holder er, 09/08/2024 02:00:00 PM, [address] [facility], [address], [place], [phone],
--- OUTSIDE RECORDS SUMMARY | 2024-09-06 09:48 | XMS_ITS | Patient Health Record ---
Author Organization [facility] [address] [facility] [address] [place] [id number] Care Team Providers Care Building Official Name Role Phone Rosa Maria Boyer Primary Care Provider [phone] Susana Singh Unavailable [phone] ALLERGIES No Known Allergies RESULTS Component Value [...] Performing Lab: Notes/Report: Abnormal, recommend f/u testing P-Basic Metabolic Panel (BMP ) Reviewed date:06/01/2024 09:24:10 AM Interpretation:satisfactory Performing Lab: Notes/Report: Test performed by [facility] [address] [place] [address] , [address], [place] [address] Abel Burgos MD, Insulation Blanket Maker CLIA: [id number] Sodium 136 135-145 mmol/L Potassium 3.7 3.5-5.3 mmol/L Chloride 101 97-108 mmol/L CO2 25 22-32 mmol/L Glucose 103 65-99 mg/dL BUN 21 8-23 mg/dL Creatinine 1.00 0.50-1.00 mg/dL Calcium 9.7 8.6-10.4 mg/dL eGFR by Creatinine 63 >59 mL/min/1.73m2 P-Sed Rate (ESR) Reviewed date:06/01/2024 09:24:10 AM Interpretation:Normal Performing Lab: Notes/Report: Test performed by [facility] [address] [place] [address] , [address], [place] [id number] Abel Burgos MD, Insulation Blanket Maker CLIA: [id number] Erythrocyte Sedimentation Rate (ESR), Automated 16 <31 mm/hr Cologuard Reviewed date:08/30/2024 09:50:26 AM Interpretation:Positive Performing Lab: Notes/Report: Positive Cologuard Cardiac Stress Test Exercise Cardiolyte Reviewed date:08/23/2024 03:15:46 PM Interpretation:Normal Performing Lab: Notes/Report: Normal CBC Venipuncture (in house) Reviewed date:08/26/2024 01:19:10 PM Interpretation:wbc 15.4 Performing Lab: Notes/Report: wbc 15.4 wbc 15.4 3.5 - 10 lymph 15.5 15 - 50 mid 5.0 2 - 15 gran 79.5 35 - 80 rbc 4.81 3.5 - 5.5 hgb 15.4 11.5 - 16.5 hct 44.8 35 - 55 mcv 93.2 75 - 100 mch 32.1 25 - 35 mchc 34.4 31 - 38 platlet 266 100 - 400 P-Vitamin B12 Reviewed date:08/26/2024 01:19:09 PM Interpretation:>1999 Performing Lab: Notes/Report: Test performed by [facility] [address] [place] [address] , [address], [place] [address] Abel Burgos MD, Insulation Blanket Maker CLIA: [id number] Vitamin B12 >2000 232-1245 pg/mL P-Comprehensive Metabolic Pa sheldon (CMP) Reviewed date:08/26/2024 01:19:10 PM Interpretation:gluc 104, Cr 1.05 Performing Lab: Notes/Report: Test performed by [facility] [address] [place] [address] , [address], [place] [address] Abel Burgos MD, Insulation Blanket Maker CLIA: [id number] Sodium 140 135-145 mmol/L Potassium 3.9 3.5-5.3 mmol/L Chloride 101 97-108 mmol/L CO2 27 22-32 mmol/L Glucose 104 65-99 mg/dL BUN 22 8-23 mg/dL Creatinine 1.05 0.50-1.00 mg/dL Calcium 10.0 8.6-10.4 mg/dL eGFR by Creatinine 60 >59 mL/min/1.73m2 Protein 7.1 6.0-8.3 g/dL Albumin 4.4 3.5-5.3 g/dL Alkaline Phosphatase 94 35-121 IU/L ALT (SGPT) 17 <5-47 IU/L AST (SGOT) 18 <5-40 IU/L Bilirubin, Total 0.4 <0.2-1.2 mg/dL A/G Ratio 1.6 1.1-2.5 P-Ferritin Reviewed date:08/26/2024 01:19:10 PM Interpretation:515 Performing Lab: Notes/Report: Test performed by [facility] [address] [place] [address] , [address], [place] [address] Abel Burgos MD, Insulation Blanket Maker CLIA: [id number] Ferritin 515.0 13.0-301.0 ng/mL P-Iron Reviewed date:08/26/2024 01:19:10 PM Interpretation:Normal Performing Lab: Notes/Report: Test performed by [facility] [address] [place] [address] , [address], [place] [address] Abel Burgos MD, Insulation Blanket Maker CLIA: [id number] Iron 96 37-145 ug/dL P-Lipid Panel Reviewed date:08/26/2024 01:19:10 PM Interpretation:chol 200, non-hdl 148 Performing Lab: Notes/Report: Test performed by [facility] [address] [place] [address] , [address], [place] [address] Abel Burgos MD, Insulation Blanket Maker CLIA: [id number] Cholesterol 200 <200 mg/dL Triglycerides 118 <150 mg/dL HDL Cholesterol 52 >39 mg/dL Cholesterol / HDL Ratio 3.85 0.00-4.44 Ratio Non-HDL Cholesterol 148 <130 mg/dL LDL Cholesterol (Calculation) 124 <130 mg/dL LDL Cholesterol Levels* Less than 100 mg/dL Optimal 100 to 129 mg/dL Near Optimal/ Above Optimal 130 to 159 mg/dL Borderline High 160 to 189 mg/dL High 190 mg/dL and above Very High * Categories as recommended by the 2004 ATPIII guidelines LDL/HDL Ratio 2.4 <3.3 Ratio LDL Cholesterol Patient History Test Date: 12/17/2023 LDL Results: 130 Units: mg/dL % Change: -20% Test Date: 03/22/2024 LDL Results: 83 Units: mg/dL % Change: -36% Test Date: 08/25/2024 LDL Results: 124 Units: mg/dL % Change: +49% P-Magnesium Reviewed date:08/26/2024 01:19:10 PM Interpretation:Normal Performing Lab: Notes/Report: Test performed by [facility] [address] [place] [address] , [facility] [address], [place] [address] Abel Burgos MD, Insulation Blanket Maker CLIA: [id number] Magnesium 2.3 1.6-2.4 mg/dL P-TSH reflex to FT4 Reviewed date:08/26/2024 01:19:10 PM Interpretation:Normal Performing Lab: Notes/Report: Test performed by [facility] [address] [place] [address] , [facility] [address], [place] [address] Abel Burgos MD, Insulation Blanket Maker CLIA: [id number] TSH reflex to FT4 1.77 0.43-5.25 mU/L P-Vitamin D 25-Hydroxy Reviewed date:08/26/2024 01:19:10 PM Interpretation:Normal Performing Lab: Notes/Report: Test performed by [facility] [address] [place] [address] , [place] [address] Abel Burgos MD, Insulation Blanket Maker CLIA: [id number] Vitamin D 25-Hydroxy 58.7 30.0-100.0 ng/mL Interpretation of Vitamin D 25 OH: < 20 ng/mL - Deficiency 20 - 29 ng/mL - Insufficiency 30 - 100 ng/mL - Sufficiency > 100 ng/mL - Super-therapeutic- toxicity may occur above this level. Clinical correlation required. Urinalysis - Inhouse Reviewed date:08/26/2024 04:38:11 PM Interpretation: Performing Lab: Notes/Report: Color/Clarity yellow/clear Leuk neg Nitrite neg Urobili 3.2 Protein 2+ pH 5.5 Blood 1+ Sp. Gr. 1.020 Ketone neg Bili neg Gluc neg bacteria WBC RBC P-Culture, Urine Reviewed date:08/29/2024 10:11:37 AM Interpretation:No growth Performing Lab: Notes/Report: Test performed by [email or web address] [address] , [address], [place] [address] Abel Burgos MD, Insulation Blanket Maker CLIA: [id number] Specimen Source Urine - Void Culture, Urine See Below Final Report : No growth Ultrasound: liver Reviewed date:09/05/2024 12:09:30 PM Interpretation:small cysts Performing Lab: Notes/Report: small cysts P-Comprehensive Metabolic Pa sheldon (CMP) Reviewed date:03/24/2024 10:25:30 AM Interpretation:K+ 3.4, gluc 100, creat 1.03 Performing Lab: Notes/Report: Test performed by [facility] [address] [place] [address] , [address], [place] [id number] Abel Burgos MD, Insulation Blanket Maker CLIA: [id number] Sodium 145 135-145 mEq/L Potassium 3.4 3.5-5.3 mEq/L Chloride 106 97-108 mEq/L CO2 25 22-32 mEq/L Glucose 100 65-99 mg/dL BUN 23 8-23 mg/dL Creatinine 1.03 0.50-1.00 mg/dL Calcium 9.9 8.6-10.4 mg/dL eGFR by Creatinine 61 >59 mL/min/1.73m2 Protein 6.9 6.0-8.3 g/dL Albumin 4.5 3.5-5.3 g/dL Alkaline Phosphatase 93 35-121 IU/L ALT (SGPT) 17 <5-47 IU/L AST (SGOT) 15 <5-40 IU/L Bilirubin, Total 0.3 <0.2-1.2 mg/dL A/G Ratio 1.9 1.1-2.5 mg/dL P-CPK Reviewed date:03/24/2024 10:25:30 AM Interpretation:Normal Performing Lab: Notes/Report: Test performed by [facility] [address] [place] [address] , [address], [place] [address] Abel Burgos MD, Insulation Blanket Maker CLIA: [id number] Creatine Kinase 70 20-180 U/L P-Lipid Panel Reviewed date:03/24/2024 10:25:30 AM Interpretation:Normal Performing Lab: Notes/Report: Test performed by [facility], [address] , [address], [place] [address] Abel Burgos MD, Insulation Blanket Maker CLIA: [id number] Cholesterol 150 <200 mg/dL Triglycerides 73 <150 mg/dL HDL Cholesterol 52 >39 mg/dL Cholesterol / HDL Ratio 2.88 0.00-4.44 Ratio Non-HDL Cholesterol 98 <130 mg/dL LDL Cholesterol (Calculation) 83 <130 mg/dL LDL Cholesterol Levels* Less than 100 mg/dL Optimal 100 to 129 mg/dL Near Optimal/ Above Optimal 130 to 159 mg/dL Borderline High 160 to 189 mg/dL High 190 mg/dL and above Very High * Categories as recommended by the 2004 ATPIII guidelines LDL/HDL Ratio 1.6 <3.3 Ratio LDL Cholesterol Patient History Test Date: 04/13/2023 LDL Results: 163 Units: mg/dL % Change: - Test Date: 12/17/2023 LDL Results: 130 Units: mg/dL % Change: -20% Test Date: 03/22/2024 LDL Results: 83 Units: mg/dL % Change: -36% P-TSH Reviewed date:03/24/2024 10:25:30 AM Interpretation:Normal Performing Lab: Notes/Report: Test performed by [facility] [address] [place] [address] , [place] [address] Abel Burgos MD, Insulation Blanket Maker CLIA: [id number] TSH 1.63 0.43-5.25 mU/L CT Scan : Chest, low dose Reviewed date:04/11/2024 03:34:16 PM Interpretation:small pulmonary nodules, recommend 6 month f/u Performing Lab: Notes/Report: small pulmonary nodules, recommend 6 month f/u P-Lipid Panel Reviewed date:12/21/2023 08:52:38 AM Interpretation:Chol 204, Non-Hdl 149, Ldl 130 Performing Lab: Notes/Report: Test performed by [facility] [address] [place] [address] [place] [address] Abel Burgos MD, Insulation Blanket Maker CLIA: [id number] Cholesterol 204 <200 mg/dL Triglycerides 96 <150 mg/dL HDL Cholesterol 55 >39 mg/dL Cholesterol / HDL Ratio 3.71 0.00-4.44 Ratio Non-HDL Cholesterol 149 <130 mg/dL LDL Cholesterol (Calculation) 130 <130 mg/dL LDL Cholesterol Levels* Less than 100 mg/dL Optimal 100 to 129 mg/dL Near Optimal/ Above Optimal 130 to 159 mg/dL Borderline High 160 to 189 mg/dL High 190 mg/dL and above Very High * Categories as recommended by the 2004 ATPIII guidelines LDL/HDL Ratio 2.4 <3.3 Ratio LDL Cholesterol Patient History Test Date: 04/13/2023 LDL Results: 163 Units: mg/dL % Change: - Test Date: 12/17/2023 LDL Results: 130 Units: mg/dL % Change: -20% P-Comprehensive Metabolic Pa sheldon (CMP) Reviewed date:12/21/2023 08:52:38 AM Interpretation:Normal Performing Lab: Notes/Report: Test performed by [facility] [address] [facility] , [address], [place] [address] Abel Burgos MD, Insulation Blanket Maker CLIA: [id number] Sodium 140 135-145 mEq/L Potassium 3.8 3.5-5.3 mEq/L Chloride 103 97-108 mEq/L CO2 28 22-32 mEq/L Glucose 93 65-99 mg/dL BUN 23 8-23 mg/dL Creatinine 0.84 0.50-1.00 mg/dL Calcium 9.5 8.6-10.4 mg/dL eGFR by Creatinine 78 >59 mL/min/1.73m2 Protein 7.0 6.0-8.3 g/dL Albumin 4.5 3.5-5.3 g/dL Alkaline Phosphatase 87 35-121 IU/L ALT (SGPT) 14 <5-47 IU/L AST (SGOT) 15 <5-40 IU/L Bilirubin, Total 0.2 <0.2-1.2 mg/dL A/G Ratio 1.8 1.1-2.5 mg/dL P-Comprehensive Metabolic Pa sheldon (CMP) Reviewed date:10/19/2023 09:29:00 AM Interpretation:Glu 100, Bun 37, Creat 1.49, Egfr 39 Performing Lab: Notes/Report: Test performed by [facility], [address] , [address], [place] [address] Abel Burgos MD, Insulation Blanket Maker CLIA: [id number] Sodium 140 135-145 mEq/L Potassium 4.0 3.5-5.3 mEq/L Chloride 103 97-108 mEq/L CO2 27 22-32 mEq/L Glucose 100 65-99 mg/dL BUN 37 8-23 mg/dL Creatinine 1.49 0.50-1.00 mg/dL Calcium 10.0 8.6-10.4 mg/dL eGFR by Creatinine 39 >59 mL/min/1.73m2 Protein 7.1 6.0-8.3 g/dL Albumin 4.5 3.5-5.3 g/dL Alkaline Phosphatase 85 35-121 IU/L ALT (SGPT) 14 <5-47 IU/L AST (SGOT) 11 <5-40 IU/L Bilirubin, Total <0.2 <0.2-1.2 mg/dL A/G Ratio 1.7 1.1-2.5 mg/dL CBC Venipuncture (in house) Reviewed date:10/15/2023 03:13:55 PM Interpretation: Performing Lab: Notes/Report: wbc 9.6 3.5 - 10 lymph 23.6 15 - 50 mid 5.7 2 - 15 gran 70.7 35 - 80 rbc 4.41 3.5 - 5.5 hgb 13.8 11.5 - 16.5 hct 40.5 35 - 55 mcv 91.7 75 - 100 mch 31.4 25 - 35 mchc 34.2 31 - 38 platlet 276 100 - 400 MEDICATIONS Medication SIG (Take, Route, Frequency, Duration) [...] 400 MG as directed Orally 05/30/2024 Active diazePAM 5 MG 1 tab(s) orally qhs 10/15/2023 Active Aspirin 81 MG 1 P.O. Q HS 01/15/2009 Act kari Potassium Chloride ER 10 MEQ 1 tablet wi th food Orally Once a day for 30 day(s) 03/28/2024 Active Doxazosin Mesylate 2 MG 2 tablets orally at bedtime for 90 days Active Iron 325 (65 Fe) MG 1 tablet Orally Once a day Not-Taking B-12 1000 MCG 1 tab(s) orally once a day for 30 day(s) Active Vitamin D3 25 MCG (1000 UT) 1 tab(s) ora lly once a day 09/24/2009 Active amLODIPine Besylate 10 MG Take 1 tablet by mouth once daily for 90 days for 90 days Active IMMUNIZATIONS Vaccine Route Administration Date Status Comme nts Tetanus Tdap-Adacel (over 7yrs) IM Intramuscular 11/27/2015 Administered COVID 19 Moderna Unknown 03/29/2021 Administered COVID 19 Moderna Unknown 10/26/2021 Administered SOCIAL HISTORY Sex Assigned At : Social History Observation Description Sex Assigned At Unknown PROBLEMS Problem Type ICD Code Onset Dates Problem Status W/U Status Risk SNOMED Code Notes Problem Leukocytosis (D72.829) Active confirmed Leukocytosis (872850799) Problem HTN (hypertension) (I10) Active confirmed Hypertension (65993177) Problem Hyperlipidemia (E78.5) Active confirmed Hyperlipidemia (98532817) Problem Vitamin D deficiency (E55.9) Active confirmed 14583518 Problem Essential hypertension (I10) Active confirmed 47376622 Problem Diverticulitis (K57.92) Active confirmed 433563497 Problem B12 deficiency (E53.8) Active confirmed 567025303 Problem Fibromyalgia (M79.7) Active confirmed 75800994 Problem Bandemia (D72.825) Active confirmed 049461310 Problem Primary insomnia (F51.01) Active confirmed 1750874 Problem Diffuse cystic mastopathy of right breast (N60.11) Active confirmed 00240705 Problem Myofasciitis (M60.9) Active confirmed 72275862 Problem Sleep disturbance (G47.9) Active confirmed 92931163 Problem Abnormal mammogram of left breast (R92.8) Active confirmed 185111852 Problem Chronic fatigue (R53.82) Active confirmed 30871305 Problem Iron deficiency anemia, unspecified iron deficiency anemia type (D50.9) Active confirmed 06405706 Problem Seasonal allergic rhinitis due to pollen (J30.1) Active confirmed 55220411 Problem Elevated WBC count (D72.829) Active confirmed Leukocytosis (742202940) Problem Fibrocystic breast disease (FCBD), unspecified laterality (N60.19) Active confirmed 93232462 Problem 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) Active confirmed 634142619 Problem Abnormal CT scan (R93.89) Active confirmed 044615845 Problem HGSIL on Pap smear of cervix (R87.613) Active confirmed 98380216402723 Problem Cervical high risk HPV (human papillomavirus) test positive (R87.810) Active confirmed 579189712 VITAL SIGNS Heart Rate 78 /min 08/31/2024 Blood pressure diastolic 80 mm Hg 08/31/2024 Height 65.25 in 08/31/2024 Blood pressure systolic 114 mm Hg 08/31/2024 Weight 114.8 lbs 08/31/2024 BMI 18.96 kg/m2 08/31/2024 Encounters Encounter Location Date Provider Diagnosis [facility] [address] [place] [id number] 10/15/2023 Rosa Maria Boyer Essential hypertensi on I10 ; Diffuse cystic mastopathy of right breast N60.11 ; Abnormal mammogram of left breast R92.8 ; Hyperlipidemia E78.5 ; Bandemia D72.825 ; Tobacco use Z72.0 ; Renal insufficiency N28.9 and Primary insomnia F51.01 [facility] [address] [facility] [address] [place], [place] [id number] 10/19/2023 Rosa Maria Boyer [facility] [address] [place], [place] [id number] 10/22/2023 Rosa Maria Boyer Renal insufficiency N28.9 [facility] [address] [place], [place] [id number] 10/23/2023 J Ciaran Merlin [facility] [address] [place], [place] [id number] 11/06/2023 J Ciaran Merlin Essential hypertensi on I10 [facility] [address] [place], [place] [id number] 11/12/2023 Susana Singh [facility] [address] [place], [place] [id number] 12/17/2023 J Ciaran Merlin Essential hypertensi on I10 and Hyperlipidemia E78.5 [facility] [address] [place], [place] [id number] 12/21/2023 J Ciaran Merlin [facility] [address] [place], [place] [id number] 02/15/2024 J Ciaran Merlin Essential hypertensi on I10 [facility] [address] [place] [id number] 02/15/2024 J Ciaran Merlin Essential hypertensi on I10 [facility] [address] [facility] [address] [place], [place] [id number] 02/22/2024 J Ciaran Merlin Essential hypertensi on I10 ; Hyperlipidemia E78.5 and Fibromyalgia M79.7 [facility] [address] [facility] [address] [place], [place] [id number] 03/21/2024 J Ciaran Merlin Essential hypertensi on I10 ; Hyperlipidemia E78.5 ; Fibromyalgia M79.7 ; Weight loss R63.4 and Tobacco use Z72.0 [facility] [address] [place], [place] [id number] 03/22/2024 J Ciaran Merlin Hyperlipidemia E78.5 [facility] [address] [place], [place] [id number] 03/22/2024 J Ciaran Merlin Essential hypertensi on I10 ; Hyperlipidemia E78.5 and Weight loss R63.4 [facility] [address] [place] [id number] 03/24/2024 J Ciaran Boyer [facility] [address] [facility] [address] [place] [id number] 04/11/2024 J Ciaran Boyer [facility] [address] [facility] [address] [place] [id number] 04/11/2024 J Ciaran Boyer [facility] [address] [facility] [address] [place] [id number] 05/04/2024 J Ciaran Boyer Fibromyalgia M79.7 [facility] [address] [facility] [address] [place] [id number] 05/05/2024 J Ciaran Boyer [facility] [address] [place] [id number] 05/30/2024 Rosa Maria Boyer Essential hypertensi on I10 ; Hyperlipidemia E78.5 ; Muscle cramps R25.2 ; Hypokalemia E87.6 and Hot flashes R23.2 [facility] [address] [place], [place] [id number] 08/08/2024 J Ciaran Boyer Essential hypertensi on I10 ; Fibromyalgia M79.7 ; Chronic fatigue R53.82 ; Screen for colon cancer Z12.11 and Tobacco use Z72.0 [facility] [address] [place] [id number] 08/19/2024 Rosa Maria Boyer [facility] [address] [place], [place] [id number] 08/25/2024 Susana Singh Vitamin D deficiency E55.9 ; Vitamin B12 deficiency E53.8 ; Iron deficiency anemia, unspecified iron deficiency anemia type D50.9 ; Essential hypertension I10 ; Fibromyalgia M79.7 ; Hypokalemia E87.6 and Hyperlipidemia E78.5 [facility] [address] [place], [place] [id number] 08/26/2024 Susana Singh Elevated ferritin le ella R79.89 [facility] [address] [place] [id number] 08/26/2024 Susana Singh Elevated WBC count D72.829 and Hematuria R31.9 [facility] [address] [place] [id number] 08/30/2024 Susana Singh Positive colorectal cancer screening using Cologuard test R19.5 [facility] [facility] [address] [place] [id number] 08/31/2024 Susana Singh Left lower quadrant pain R10.32 and History of diverticulitis Z87.19 [facility] [address] [place] [id number] 09/04/[address] scan R93 .89 ASSESSMENTS Encounter Date Diagnosis Assessment Notes Treatment Notes Treatment Clinical Notes 10/15/2023 Essential hypertension (ICD-10 - I10) 10/15/2023 Diffuse cystic mastopathy of right breast (ICD-10 - N60.11) 02/15/2024 Essential hypertension (ICD-10 - I10) 02/22/2024 Hyperlipidemia (ICD-10 - E78.5) 02/22/2024 Essential hypertension (ICD-10 - I10) 03/21/2024 Hyperlipidemia (ICD-10 - E78.5) RETURN TO OFFICE IN AM FOR LIPIDS, CMP, CPK, TSH 03/21/2024 Essential hypertension (ICD-10 - I10) 05/30/2024 Hyperlipidemia (ICD-10 - E78.5) 05/30/2024 Essential hypertension (ICD-10 - I10) 03/22/2024 Hyperlipidemia (ICD-10 - E78.5) 08/26/2024 Elevated ferritin level (ICD-10 - R79.89) 08/30/2024 Positive colorectal cancer screening using Cologuard test (ICD-10 - R19.5) 08/31/2024 Left lower quadrant pain (ICD-10 - R10.32) 08/31/2024 History of diverticulitis (ICD-10 - Z87.19) 09/04/[address] scan (ICD-10 - R93.89) 08/08/2024 Essential hypertension (ICD-10 - I10) 08/08/2024 Fibromyalgia (ICD-10 - M79.7) 05/04/2024 Fibromyalgia (ICD-10 - M79.7) 02/15/2024 Essential hypertension (ICD-10 - I10) 12/17/2023 Hyperlipidemia (ICD-10 - E78.5) 12/17/2023 Essential hypertension (ICD-10 - I10) 11/06/2023 Essential hypertension (ICD-10 - I10) continue current therapy 10/22/2023 Renal insufficiency (ICD-10 - N28.9) 03/22/2024 Essential hypertension (ICD-10 - I10) 08/25/2024 Vitamin D deficiency (ICD-10 - E55.9) 08/25/2024 Vitamin B12 deficiency (ICD-10 - E53.8) 08/25/2024 Iron deficiency anemia, unspecified iron deficiency anemia type (ICD-10 - D50.9) 03/22/2024 Hyperlipidemia (ICD-10 - E78.5) 08/08/2024 Chronic fatigue (ICD-10 - R53.82) 03/21/2024 Fibromyalgia (ICD-10 - M79.7) 08/26/2024 Elevated WBC count (ICD-10 - D72.829) 05/30/2024 Muscle cramps (ICD-1 0 - R25.2) 02/22/2024 Fibromyalgia (ICD-10 - M79.7) 10/15/2023 Abnormal mammogram o f left breast (ICD-10 - R92.8) 10/15/2023 Hyperlipidemia (ICD-10 - E78.5) 03/21/2024 Weight loss (ICD-10 - R63.4) 08/26/2024 Hematuria (ICD-10 - R31.9) 05/30/2024 Hypokalemia (ICD-10 - E87.6) 08/08/2024 Screen for colon cancer (ICD-10 - Z12.11) 03/22/2024 Weight loss (ICD-10 - R63.4) 08/25/2024 Essential hypertension (ICD-10 - I10) 08/25/2024 Fibromyalgia (ICD-10 - M79.7) 08/08/2024 Tobacco use (ICD-10 - Z72.0) 03/21/2024 Tobacco use (ICD-10 - Z72.0) 05/30/2024 Hot flashes (ICD-10 - R23.2) 10/15/2023 Bandemia (ICD-10 - D72.825) 10/15/2023 Tobacco use (ICD-10 - Z72.0) 08/25/2024 Hypokalemia (ICD-10 - E87.6) 08/25/2024 Hyperlipidemia (ICD-10 - E78.5) 10/15/2023 Renal insufficiency (ICD-10 - N28.9) 10/15/2023 Primary insomnia (ICD-10 - F51.01) 02/22/2024 Other NOTE NORMAL RENAL FUNCTION ON DECEMBER LAB REPORT. NOTE ABNORMAL LIPIDS. PLAN OF TREATMENT Pending Test Test Name Order Date Echocardiogram 09/04/2024 colonoscopy 04/27/2023 colonoscopy 08/30/2024 Next Appt Details Provider Name:Rosa Maria Wagoner Gallo er, 09/08/2024 02:00:00 PM, [address], [place], [place], [id number], Insurance Providers Payer Name Payer Address Payer Phone Subscriber Number Group Number Insured Name Patient Relationship to Insured Coverage Start Date Coverage End Date [employer] (MEDICAR E) [address] [address] [place] [address] [id number] Smitha Og Self - patient is the insured MEDICATIONS ADMINISTERED Medication Instructions Date of Administration Dosage Notes B-12 09/24/2009 1 mL B-12 10/02/2009 B-12 10/12/2009 1 mL B-12 10/18/2009 B-12 05/29/2014 1 mL MEDICAL (GENERAL) HISTORY Medical History History ICD Code Fibrocystic Breast Disease Family Hx Colon Cancer Hypertension Surgical History Surgery Date(Month/Year) Colposcopy 04/2006 Heart Cath 06/2009 Colonoscopy, Dr. Han 10/2010 RT Foot- Dr Horowitz 08/06/2015 Cervical conization, Dr. Shannon, dysplas ia 05/23/2020 Hospitalization History Reason Date(Month/Year) Colitis 10/03/2010 Colitis 09/25/2010
[2024-09-06 10:47] LABS: Iron 82 ug/dL (37-170)
[2024-09-06 10:57] LABS: Total Iron Binding Capacity 238 ug/dL (265-497)
[2024-09-06 11:22] LABS: Ferritin 245 ng/ml (11.1-264)
== END 2024-09-06 23:59 | disposition home or self-care (01) ==
LOC: LAB 09:45
PROVIDERS: PCP Family Medicine; Visit Provider Internal Medicine Medical Oncology
DX: R79.89 Other specified abnormal findings of blood chemistry (principal)
CPT/HCPCS: 36415; 82728; 83540; 83550

== ENCOUNTER 2024-10-14 12:24 | Outpatient (CLI) | payer MEDICARE, SELFPAY ==
[2024-10-14 13:13] LABS: Basophils # 0.1 K/mm3 (0-0.2); Basophils % 0.6 % (0.1-2.0); Eosinophils # 0.1 K/mm3 (0.0-0.4); Hematocrit 46.1 % (37.0-47.0); Hemoglobin 15.5 g/dL (12.2-16.2); Lymphocytes % 19.8 % (10-50); Mean Corpuscular HGB Conc 33.5 g/dL (31.8-35.4); Mean Corpuscular Hemoglobin 31.8 pg (27.0-31.2); Mean Platelet Volume 7.7 fl (7.4-10.4); Monocytes # 0.6 K/mm3 (0.1-1.0); Neutrophils # 7.3 K/mm3 (1.8-7.8); Neutrophils % 72.6 % (37.0-80.0); Platelet Count 241 K/mm3 (142-424); Red Blood Count 4.86 M/mm3 (4.20-5.40); Red Cell Distribution Width 13.8 % (11.5-17.5)
[2024-10-14 13:32] LABS: Albumin Level 4.6 g/dl (3.5-5.0); Blood Urea Nitrogen 25 mg/dl (7-17); Carbon Dioxide 28 mmol/L (22.0-30.0); Chloride 106 mmol/L (98-107); Estimated Glomerular Filt Rate 56 ml/min (>60); GFR (African American) 68 ML/MIN (>60); Glucose 99 mg/dl (74-100); Phosphorous 4.4 mg/dl (2.5-4.5); Sodium 140 mmol/L (136-145)
[2024-10-14 13:44] LABS: Intact Parathyroid Hormone 43.3 pg/mL (7.5-53.5)
[2024-10-14 13:49] LABS: 25-OH Vitamin D, Total 58.1 ng/mL (30-100)
== END 2024-10-14 23:59 | disposition home or self-care (01) ==
LOC: LAB 12:25
PROVIDERS: PCP Family Medicine; Visit Provider Nurse Practitioner
DX: N18.2 Chronic kidney disease, stage 2 (mild) (principal); E21.3 Hyperparathyroidism, unspecified
CPT/HCPCS: 80069; 82306; 83970; 85025

== ENCOUNTER 2024-10-18 12:36 | Outpatient (CLI) | payer MEDICARE, SELFPAY ==
--- NOTE | 2024-10-18 | US_ITS ---
FINAL REPORT CLINICAL HISTORY: CKD COMPARISON: None FINDINGS: RENAL ULTRASOUND Ultrasound images of the kidneys were obtained. Limited images of the liver parenchyma demonstrate normal echogenicity. The right kidney measures 10 cm in length. It is normal echogenicity. There is no hydronephrosis. There is a 1.1 cm cyst. The left kidney measures 8.9 cm in length. It is normal echogenicity. There is no hydronephrosis. The spleen is normal in size. IMPRESSION: Right kidney cyst measuring 1.1 cm. No hydronephrosis. Reviewed, Interpreted and Dictated by Leonardo Turpin III, MD Transcribed by Melanie Gasca Authenticated and [facility]
== END 2024-10-18 23:59 | disposition home or self-care (01) ==
LOC: RAD 12:36
PROVIDERS: PCP Family Medicine; Visit Provider Nurse Practitioner
DX: N18.2 Chronic kidney disease, stage 2 (mild) (principal)
CPT/HCPCS: 76770

== ENCOUNTER 2025-02-27 10:23 | Outpatient (CLI) | payer MEDICARE, SELFPAY ==
--- OUTSIDE RECORDS SUMMARY | 2025-02-27 10:25 | XMS_ITS ---
Author Organization Unknown Problems Date Problem Result OnSetDate Icd10 SnomedCode Severity 08/08/2024 00:00:00 Chronic fatigue R53.82 [id number] 08/25/2024 00:00:00 Vitamin D deficiency E55.9 60194178 08/25/2024 00:00:00 Iron deficiency anemia, unspecified iron deficiency anemia type D50.9 [id number] 08/26/2024 00:00:00 Elevated WBC count D72.829 09/05/2024 00:00:[address] scan R93.89 [id number] 09/08/2024 00:00:00 Slow transit constipation K59.01 68942120
--- NOTE | 2025-02-27 10:26 | MM_ITS ---
PROCEDURE INFORMATION: Exam: MG Bilateral Screening 3D Mammography Exam date and time: 02/27/2025 10:36 AM Age: 64 years old Clinical indication: Screening examination TECHNIQUE: Imaging protocol: Bilateral Screening tomosynthesis and 2D mammography including computer-aided detection (CAD) when performed. COMPARISON: 1. MG MM DIG SCREENING MAMM BI W/CAD 05/06/2023 7:46 AM 2. MG MM DIG SCREENING MAMM BI W/CAD 12/27/2021 11:00 AM FINDINGS: MAMMOGRAPHY: Breast composition: The breasts are heterogeneously dense, which may obscure small masses. Mass: None. Architectural distortion: None. Calcifications: No suspicious calcifications. Asymmetric density: None. Skin thickening: None. Axillary adenopathy: None. IMPRESSION: No mammographic evidence of malignancy. Annual screening is recommended unless otherwise clinically indicated. ASSESSMENT: BI-RADS Category 1: Negative.
== END 2025-02-27 23:59 | disposition home or self-care (01) ==
LOC: RAD 10:23
PROVIDERS: PCP Family Medicine; Visit Provider Family Medicine
DX: Z12.31 Encounter for screening mammogram for malignant neoplasm of breast (principal)
CPT/HCPCS: 77063; 77067